=== PATIENT | female | born 1995 | race Caucasian/White ===

== ENCOUNTER 2020-01-06 00:52 | Inpatient (IN) | payer BC, SELFPAY ==
[~2020-01-06] VITALS: Ht 160 cm; Wt 79.8 kg
[2020-01-06] MEDS ORDERED: IV NORMAL SALINE 1000 ML BAG IV ONE (01:30)
[2020-01-06] MEDS ORDERED: LORAZEPAM 2 MG/1 ML VIAL IM ONE (01:30)
--- NOTE | 2020-01-06 01:40 | NUR ---
Pt [facility] AMS. Able to respond verbally but speech slightly garbled and has difficulty concentrating. Pt is trashing in bed and unable to keep still at this time. Unable to have meaningful conversation with patient. At this time, no BP can be taken due to patient's movement, HR elevated to 150's. Side rails up x 2. Bed locked in position. Fall/Injury prevention protocols in place. RN keeps patient in close monitoring, will stabilize condition. Dr Posey at bedside.
[2020-01-06] MEDS ORDERED: HALOPERIDOL LACTATE 5 MG/1 ML VIAL IM ONE (01:45)
[2020-01-06 01:46] LABS: BASOPHILS # (AUTO) 0.2 K/uL (0.0-8.0); BASOPHILS % (AUTO) 0.8 % (0.0-2.0); EOSINOPHILS # (AUTO) 0.1 K/uL (0.0-0.7); EOSINOPHILS % (AUTO) 0.3 % (0.0-7.0); HEMATOCRIT 34.6 % (31.2-41.9); HEMOGLOBIN 11.3 g/dL (10.9-14.3); LYMPHOCYTES # (AUTO) 3.5 K/uL (20.0-40.0); LYMPHOCYTES % (AUTO) 17.8 % (20.5-51.5); MEAN CORPUSCULAR HEMOGLOBIN 28.5 uug (24.7-32.8); MEAN CORPUSCULAR HGB CONC 33 g/dL (32.3-35.6); MEAN CORPUSCULAR VOLUME 87.3 fL (75.5-95.3); MONOCYTES # (AUTO) 1.7 K/uL (2.0-10.0); MONOCYTES % (AUTO) 8.9 % (0.0-11.0); NEUTROPHILS # (AUTO) 14.1 K/uL (1.8-8.9); NEUTROPHILS % (AUTO) 72.2 % (38.5-71.5); PLATELET COUNT (AUTO) 264 K/uL (179-408); RED BLOOD CELL COUNT(AUTO) 3.96 MIL/uL (3.63-4.92); WHITE BLOOD COUNT (AUTO) 19.6 K/uL (3.8-11.8)
--- NOTE | 2020-01-06 01:50 | NUR ---
Unable to do EKG or start a line at this time or get an accurate blood pressure reading. Pt remains trashing and moving incontrollably. Haldol 1mg just given IM as ordered. Will wait for it to work.
[2020-01-06] MEDS ORDERED: HALOPERIDOL LACTATE 5 MG/1 ML VIAL ONE (01:55)
[2020-01-06 02:02] LABS: CREATININE 1.1 mg/dL (0.6-1.3); POTASSIUM 3.8 mmol/L (3.5-5.1)
[2020-01-06 02:08] LABS: BILIRUBIN,DIRECT 0.1 mg/dL (0.0-0.2); BILIRUBIN,TOTAL 0.7 mg/dL (0.2-1.0); TOTAL PROTEIN, SERUM 7.5 g/dL (6.4-8.2)
[2020-01-06 02:12] LABS: ETHANOL < 3 MG/DL (0-0)
[2020-01-06 02:17] LABS: THYROID STIMULATING HORMONE 0.373 mIU/mL (0.358-3.740)
--- NOTE | 2020-01-06 02:40 | NUR ---
Pt is now calm and sleeping, does not appear to be in acute distress. Latest BP 104/72, HR has decreased to 103, O2: 95% on 2LPM. All MD orders noted and carried out. IV fluids running smoothly in 22G PIV on R forearm. Bed locked in place. Side rails up x2. Tele Monitor on. Monitored closely.
--- NOTE | 2020-01-06 03:25 | NUR ---
Note gracielaone in ED - 01/06/[address] at [address] Thompson is speaking with Dr. Posey at this time. Admitted patient to [facility], belongings list completed. Pending Xray per Dr Thompson's request. Will perform and send patient up.
--- NOTE | 2020-01-06 03:32 | NUR ---
Called 3rd floor for bed, got room 314. [facility] called for panel call with Dr. Thompson
--- NOTE | 2020-01-06 03:35 | NUR ---
Dr Thompson is speaking with Dr. Posey at this time. Admitted patient to Tele, belongings list completed. Pending Xray per Dr Thompson's request. Will perform and send patient up.
[2020-01-06] MEDS ORDERED: ENOXAPARIN SODIUM 80 MG/0.8 ML DISP.SYRIN SQ ONE ×2 (03:45→03:46)
--- NOTE | 2020-01-06 03:46 | NUR ---
cv tech at bedside.
--- NOTE | 2020-01-06 03:56 | NUR ---
Report given to Vanessa JACKSON.
[2020-01-06] MEDS ORDERED: IV NS 1000 ML 1,000 ML IV PRN (04:02)
[2020-01-06] MEDS ORDERED: HYDROCODONE/APAP 5-325MG TABLET PO PRN (04:15)
[2020-01-06] MEDS ORDERED: MAGNESIUM HYDROXIDE 30 ML LIQUID UDC PO PRN (04:15)
[2020-01-06] MEDS ORDERED: ONDANSETRON 4 MG/2 ML VIAL IV PRN (04:15)
[2020-01-06] MEDS ORDERED: ACETAMINOPHEN 325 MG TABLET PO PRN (04:15)
[2020-01-06] MEDS ORDERED: Z GUARD REMEDY PASTE 57 GM TUBE TOP PRN (04:15)
[2020-01-06] MEDS ORDERED: LORAZEPAM 2 MG/1 ML VIAL IV PRN (04:15)
[2020-01-06] MEDS ORDERED: AZITHROMYCIN IV 500 MG in IV DEXTROSE 5% 250 ML IV ONE (04:30)
[2020-01-06] MEDS ORDERED: CEFTRIAXONE 1 G in IV DEXTROSE 5% 50 ML IV ONE (04:30)
--- NOTE | 2020-01-06 04:40 | NUR ---
XRAY RESULTS ARE BACK. HOLD ADMISSION, PT IS NOW PUI FOR COVID 19. CHARGE NURSE 3RD FLOOR MADE AWARE AND DR. NEGRETE HAS SPOKEN WITH DR. SPEARS.
[2020-01-06] MEDS ORDERED: AZITHROMYCIN 500 MG VIAL IV ONE (04:53)
[2020-01-06] MEDS ORDERED: CEFTRIAXONE /D5W 50ML IVPB **ER PYXIS IV ONE (04:53)
[2020-01-06 05:00] LABS: BASOPHILS # (AUTO) 0.1 K/uL (0.0-8.0); BASOPHILS % (AUTO) 0.6 % (0.0-2.0); EOSINOPHILS # (AUTO) 0.1 K/uL (0.0-0.7); EOSINOPHILS % (AUTO) 0.6 % (0.0-7.0); HEMATOCRIT 36.7 % (31.2-41.9); HEMOGLOBIN 12.1 g/dL (10.9-14.3); LYMPHOCYTES # (AUTO) 3.7 K/uL (20.0-40.0); LYMPHOCYTES % (AUTO) 24.8 % (20.5-51.5); MEAN CORPUSCULAR HEMOGLOBIN 28.7 uug (24.7-32.8); MEAN CORPUSCULAR HGB CONC 33 g/dL (32.3-35.6); MEAN CORPUSCULAR VOLUME 87.3 fL (75.5-95.3); MONOCYTES # (AUTO) 1.4 K/uL (2.0-10.0); MONOCYTES % (AUTO) 9.4 % (0.0-11.0); NEUTROPHILS # (AUTO) 9.6 K/uL (1.8-8.9); NEUTROPHILS % (AUTO) 64.6 % (38.5-71.5); PLATELET COUNT (AUTO) 249 K/uL (179-408); WHITE BLOOD COUNT (AUTO) 14.9 K/uL (3.8-11.8)
[2020-01-06 05:17] LABS: CARBON DIOXIDE 27 mmol/L (21-32); CHLORIDE 105 mmol/L (98-107); CREATININE 0.9 mg/dL (0.6-1.3); GLUCOSE 81 mg/dL (74-106); POTASSIUM 3.6 mmol/L (3.5-5.1); UREA NITROGEN, BLOOD 16 mg/dL (7-18)
[2020-01-06 05:21] LABS: ACETAMINOPHEN < 2.0 ug/mL (10-30); CHOLESTEROL 161 mg/dL (<200); HDL CHOLESTEROL 71 mg/dL (40-60); TRIGLYCERIDES 28 MG/DL (30-150)
--- NOTE | 2020-01-06 05:22 | NUR ---
All new orders from Dr. Posey noted and carried out. Pt is now on airborne/droplet isolation for PUI COVID19. Called for a bed from Charge Nurse, received Room 226. Per [facility] Protocols, patient will be kept in ER until [facility] hospitalist examines patient after 0700. Patient is currently sleeping, tried to wean patient off O2 but, she desaturates to 86% on RA even at rest. Kept O2 on 2LPM via NC, saturating to 98-100% at this time. Side rails up x 2. Bed locked on position. Normal sinus rhythm on tele at this time. Will continue to monitor closely. Fall/Safety/Isolation precautions maintained.
[2020-01-06 05:29] LABS: FERRITIN 34 ng/mL (8-252); LACTATE DEHYDROGENASE 327 U/L (81-234)
[2020-01-06 05:32] LABS: CREATINE KINASE, TOTAL 1251 U/L (26-192); LIPASE 55 U/L (73-393); PHOSPHOROUS 4.3 mg/dL (2.5-4.9)
[2020-01-06] MEDS ORDERED: PIPERACILLIN SODIUM/TAZOBACTAM 3.375 G in IV DEXTROSE 5% 50 ML IV SCH (06:00)
--- NOTE | 2020-01-06 06:50 | NUR ---
Pt remains asleep at this time. No signs of distress. Stable on monitor. Will endorse accordingly.
[2020-01-06] MEDS ORDERED: PANTOPRAZOLE SODIUM 40 MG TABLET.DR PO SCH (07:00)
[2020-01-06] MEDS ORDERED: PIPERACILLIN/TAZOBACTAM/D5W 3.375 G in IV DEXTROSE 5% 50 ML IV SCH (09:00)
--- NOTE | 2020-01-06 09:00 | NUR ---
received pt. from ER for NSTEMI/ rule out covid. pt. is alert oriented x4 but very drowsy. Pt. is sleeping and awaken to name and touch. pt. has IV in L Forearm 22 gauge intact patent saline lock. pt. on 2 L NC. Vital signs taken all within normal limits. safety measures in place. call light within reach. will continue to monitor pt.
--- NOTE | 2020-01-06 09:00 | NUR ---
pt transferred to floor with hospital guidelines for covid-19 precations, when the room was ready. pt arousable, answered questions with one word responses. all the belongings placed in a pt belonging bags.
[2020-01-06 09:30] VITALS: BP 106/60
[2020-01-06 11:30] VITALS: BP 122/74
--- NOTE | 2020-01-06 12:09 | NUR ---
pt. has IV fluid and zosyn. Unable to give because there is no IV pole and pump on floor. Called central twice no answer. Will call again.
[2020-01-06] MEDS: PIPERACILLIN/TAZOBACTAM/D5W 3.375 G in IV DEXTROSE 5% 50 ML IV SCH ×2 (15:05→21:03)
[2020-01-06 16:00] VITALS: BP 130/74
--- NOTE | 2020-01-06 16:13 | NUR ---
Pt. is unable to have any meaningful conversation. Pt. can answer name, , where she is and why she is here but does not answer any questions for admission interview. pt. denies headache, dizziness, sob, difficulty breathing, pain. dimmed lights and decreased noise. safety measures in place. pt. is getting fluids and antibiotics at this time. I was unable to give abx at appropriate time due to no IV pump according to central supply. Pharmacist readjusted abx times. IV pole and pump brought in abx and fluids are infusing now.
--- NOTE | 2020-01-06 19:30 | NUR ---
RECEIVED PT IN NO ACUTE DISTRESS. IV INTACT. SAFETY AND COMFORT PROVIDED. WILL CONTINUE TO MONITOR.
[2020-01-06 20:00] VITALS: BP 100/64
--- NOTE | 2020-01-06 22:30 | NUR ---
PT REQUESTED TO GO HOME. EDUCATED THE PT REGARDING THE RISK OF GOING HOME AND ENCOURAGE TO STAY. PT INSISTED TO GO HOME. PT SIGNED AMA. CHARGE NURSE AND SENIOR APPLICATIONS ANALYST AWARE. ASSISTED PT TO THE LOBBY WAITING FOR HER TRANSPORTATION.. PT IN NO ACUTE DISTRESS. PT GIVEN MASK. HEPLOCK REMOVED AND ID BAND REMOVED.
== END 2020-01-06 22:41 | disposition left against medical advice (07) | DRG 918 ==
LOC: ER 00:55 → TELE 09:02
PROVIDERS: ADMIT Hospitalist; ATTEND Hospitalist
DX: T65.891A Toxic effect of other specified substances, accidental (unintentional), initial encounter (principal); R41.82 Altered mental status, unspecified; Y92.89 Other specified places as the place of occurrence of the external cause; R79.89 Other specified abnormal findings of blood chemistry
CPT/HCPCS: 36415; 70030-TC; 71045; 80329; 83605; 83615; 83690; 83735; 84100; 84443; 85025; 85730; 86140; 87040; 93005; A4663; C1758; G0378; G0480; G0480-TC; J0456; J0696; J1630; J1650; J2543; J7030; J7060; U0003-CS